=== PATIENT | male | born 1955 | race Caucasian/White ===

== ENCOUNTER 2019-06-07 05:11 | Inpatient (IN) | payer BC ==
--- OUTSIDE RECORDS SUMMARY | 2019-06-07 05:14 | XMS REPORT | Clinical Summary ---
:1955 Author Organization [facility] Address [address] [place] [address] Care Team Providers Name Role Phone Frederic Mosquera MD Primary Care Provider Allergies Active Allergy Reactions Severity Noted Date Comments Penicillins Other (See Comments) 01/03/2018 As a child Medications Medication Sig Dispensed Refills Start Date End Date Status metFORMIN (GLUCOPHAGE) Take 1,000 mg by 0 Active 1000 MG tablet mouth 2 (two) times daily with breakfast and dinner. SITagliptin (JANUVIA) Take 50 mg by 0 Active 50 MG tablet mouth daily. lisinopril Take 5 mg by 0 Active (PRINIVIL,ZESTRIL) 5 MG mouth daily. tablet lovastatin (MEVACOR) 40 Take 40 mg by 0 Active MG tablet mouth nightly. magnesium oxide Take 400 mg by 0 Active (MAG-OX) 400 mg tablet mouth daily. cinnamon bark 500 mg Take 500 mg by 0 Active capsule mouth daily. cholecalciferol Take 1,000 Units 0 Active (VITAMIN D3) 1,000 unit by mouth daily. tablet Active Problems Not on file Social History Tobacco Use Types Packs/Day Years Used Date Former Smoker Smokeless Tobacco: Never Used Alcohol Use Drinks/Week oz/Week Comments No Sex Assigned at Date Recorded Not on file Job Start Date Occupation Industry Not on file Not on file Not on file Travel History Travel Start Travel End No recent travel history available. Last Filed Vital Signs Not on file Plan of Treatment Not on file Results Not on fileafter 06/06/2018 Insurance Payer Benefit Plan / Subscriber ID Type Phone Address Group BLUE [employer]OSS/[employer]UE [employer] OS xxxxxxxxxxxxxxx PPO [phone] [address] SHIELD POS/PPO/[place] [address]
--- OUTSIDE RECORDS SUMMARY | 2019-06-07 05:14 | XMS REPORT ---
:1955 Author [facility] Address [address] [place] [address] Care Team Providers Name Role Phone MARLENI BARON Unavailable Unavailable Problems This patient has no known problems. Allergies, Adverse Reactions, Alerts This patient has no known allergies or adverse reactions. Medications This patient has no known medications. Results Test Description Test Time Test Comments Text Results Atomic Results Result Comments TISSUE EXAM 2018-01-12 19:30:00 Surgical Pathology Report Case: [id number] Authorizing Provider: Marleni Baron MD Collected: 01/10/2018 1538 Ordering Location: [facility] Endoscopy Received: 01/11/2018 0839 Services Pathologist: Aron Treviño MD Specimens: A) - Polyp, Colon - Right/Ascending, hot snare B) - Polyp, Colon - Rectum, POLYPS X2, TAKEN BY EMR/HOT SNARE A. COLON, RIGHT/ASCENDING, POLYPECTOMY- NONDYSPLASTIC COLON MUCOSA WITH NO SIGNIFICANT DIAGNOSTIC ALTERATIONSB. RECTUM, POLYPECTOMY- SESSILE SERRATED POLYP- HYPERPLASTIC POLYP- SEPARATE FRAGMENT OF RECTAL MUCOSA WITH NO SIGNIFICANT DIAGNOSTIC ALTERATIONS Signing Pathologist Direct Phone Line: [phone] signed by Aron Treviño MD on 01/12/2018 at 7:30 [id number] colonic polypA. Right/ascending colon colon polyp. B. Rectum polypSpecimen A: Received in formalin labeled "polyp, colon right/ascending" is a 0.7 x 0.5 x 0.2 cm, pink-ervin, irregular fragment of soft tissue. The specimen is bisected and entirely submitted in cassette A1.Specimen B: Received in formalin labeled "polyp, colon rectum" are three irregular, pink-ervin, polypoid fragments of soft tissue measuring 1.5 x 1.2 x 0.3 cm in aggregate. The largest fragment is bisected, and the specimen is entirely submitted in B1. DB/ew A. Microscopic examination is performed and the findings are incorporated in the diagnostic line. B. There is no cytologic atypia. POCT-GLUCOSE METER 2018-01-10 11:41:00 Test Item Value Reference Range Comments POC-GLUCOSE METER (ARELY) (test 177 mg/dL 70-110 TESTED AT [facility] [address] [facility] [id number]) [facility] [id number]
[2019-06-07] MEDS ORDERED: METOPROLOL TAR 25 MG TAB ONE (06:01)
--- NOTE | 2019-06-07 06:01 | EDPHYS ---
Physician Documentation [facility] Name: Bright Severino Age: 63 yrs Sex: Male : 1955 Arrival Date: 06/07/2019 Time: 05:25 Bed 5 Private MD: ED Physician Tony Moore HPI: 06/07 05:36 This 63 yrs old Male presents to ER via EMS with complaints of dizzy and timur weakness. 05:36 The patient has experienced near-syncope, almost passed out, felt generally weak. timur Onset: The symptoms/episode began/occurred just prior to arrival, this morning. Duration: This was a single episode, that lasted 3 minute(s). The patient presents with dizziness, feeling faint, generalized weakness, lightheadedness. Onset: The symptoms/episode began/occurred. Context: occurred at home, occurred while the patient was sitting. Modifying factors: The symptoms are alleviated by nothing, the symptoms are aggravated by nothing. Associated signs and symptoms: Pertinent positives: nausea, shortness of breath, vomiting. Historical: - Allergies: 05:38 PENICILLINS; fc - Home Meds: 05:38 metformin 1,000 mg oral tab 1 tab 2 times per day [Active]; Januvia 50 mg oral tab 1 fc tabs once daily [Active]; lovastatin 40 mg Oral tab 1 tab once daily [Active]; - PMHx: 05:38 Diabetes - NIDDM; High Cholesterol; fc - PSHx: 05:38 None; fc - Immunization history:: Last tetanus immunization: unknown. - Social history:: Smoking status: Patient/guardian denies using tobacco, Patient/guardian denies using alcohol, street drugs. - Ebola Screening: : Patient negative for fever greater than or equal to 101.5 degrees Fahrenheit, and additional compatible Ebola Virus Disease symptoms Patient denies exposure to infectious person Patient denies travel to an Ebola-affected area in the 21 days before illness onset. - Family history:: not pertinent. ROS: 05:36 Constitutional: Negative for fever, chills, and weight loss, Eyes: Negative for injury, timur pain, redness, and discharge, ENT: Negative for injury, pain, and discharge, Neck: Negative for injury, pain, and swelling, Back: Negative for injury and pain, : Negative for injury, bleeding, discharge, and swelling, MS/Extremity: Negative for injury and deformity, Skin: Negative for injury, rash, and discoloration, Psych: Negative for depression, anxiety, suicide ideation, homicidal ideation, and hallucinations, Allergy/Immunology: Negative for hives, rash, and allergies, Endocrine: Negative for neck swelling, polydipsia, polyuria, polyphagia, and marked weight changes, Hematologic/Lymphatic: Negative for swollen nodes, abnormal bleeding, and unusual bruising. 05:36 Cardiovascular: Positive for palpitations. 05:36 Respiratory: Positive for cough, shortness of breath. 05:36 Neuro: Positive for dizziness, near syncope. Exam: 05:36 Constitutional: This is a well developed, well nourished patient who is awake, alert, timur and in no acute distress. Head/Face: Normocephalic, atraumatic. Eyes: Pupils equal round and reactive to light, extra-ocular motions intact. Lids and lashes normal. Conjunctiva and sclera are non-icteric and not injected. Cornea within normal limits. Periorbital areas with no swelling, redness, or edema. ENT: Nares patent. No nasal discharge, no septal abnormalities noted. Tympanic membranes are normal and external auditory canals are clear. Oropharynx with no redness, swelling, or masses, exudates, or evidence of obstruction, uvula midline. Mucous membranes moist. Neck: Trachea midline, no thyromegaly or masses palpated, and no cervical lymphadenopathy. Supple, full range of motion without nuchal rigidity, or vertebral point tenderness. No Meningismus. Chest/axilla: Normal chest wall appearance and motion. Nontender with no deformity. No lesions are appreciated. Abdomen/GI: Soft, non-tender, with normal bowel sounds. No distension or tympany. No guarding or rebound. No evidence of tenderness throughout. Back: No spinal tenderness. No costovertebral tenderness. Full range of motion. Male : Normal genitalia with no discharge or lesions. Skin: Warm, dry with normal turgor. Normal color with no rashes, no lesions, and no evidence of cellulitis. MS/ Extremity: Pulses equal, no cyanosis. Neurovascular intact. Full, normal range of motion. Neuro: Awake and alert, GCS 15, oriented to person, place, time, and situation. Cranial nerves II-XII grossly intact. Motor strength 5/5 in all extremities. Sensory grossly intact. Cerebellar exam normal. Normal gait. Psych: Awake, alert, with orientation to person, place and time. Behavior, mood, and affect are within normal limits. 05:36 Cardiovascular: Rate: tachycardic, Rhythm: regular, Pulses: Pulses are 4+ in bilateral radial, brachial, femoral, popliteal, posterior tibial and and dorsalis pedis arteries.. Heart sounds: normal, Edema: is not appreciated, JVD: is not appreciated. 05:41 Musculoskeletal/extremity: DVT Exam: No signs of deep vein thrombosis. no pain, no timur swelling, no tenderness, negative Homans' sign noted on exam, no appreciated bluish discoloration, no erythema, no increased warmth. Vital Signs: 05:10 BP 157 / 82; Pulse 116; Resp 16; Temp 98.4(O); Pulse Ox 93% on R/A; Weight 102.06 kg fc (R); Height 5 ft. 9 in. (175.26 cm) (R); Pain 0/10; 06:30 BP 120 / 64; Pulse 75; Resp 14 S; Pulse Ox 95% on R/A; bb 07:52 BP 119 / 82; Pulse 69; Resp 16; Pulse Ox 99% ; sv 08:41 BP 110 / 72; Pulse 63; Resp 17; Pulse Ox 100% on R/A; tw2 09:45 BP 112 / 71; Pulse 60; Resp 17; Pulse Ox 99% on R/A; Pain 0/10; tw2 05:10 Body Mass Index 33.23 (102.06 kg, 175.26 cm) MDM: 05:27 Patient medically screened. [facility] 05:40 Data reviewed: vital signs, nurses notes, lab test result(s), EKG, radiologic studies, [facility] plain films. 06/07 05:35 Order name: Basic Metabolic Panel [facility] 06/07 05:35 Order name: CBC with Diff [facility] 06/07 05:35 Order name: LFT's [facility] 06/07 05:35 Order name: Magnesium [facility] 06/07 05:35 Order name: NT PRO-BNP [facility] 06/07 05:35 Order name: PT-INR; Complete Time: 06:19 [facility] 06/07 05:35 Order name: Troponin (emerg Dept Use Only); Complete Time: 06:52 [facility] 06/07 05:35 Order name: TSH; Complete Time: 06:52 [facility] 06/07 05:35 Order name: Lipase; Complete Time: 06:52 [facility] 06/07 05:35 Order name: Urine Culture [facility] 06/07 05:35 Order name: D-Dimer; Complete Time: 06:19 [facility] 06/07 05:37 Order name: Basic Metabolic Panel; Complete Time: 06:52 [facility] 06/07 05:37 Order name: CBC with Automated Diff; Complete Time: 06:19 [facility] 06/07 05:37 Order name: Liver (Hepatic) Function; Complete Time: 06:52 [facility] 06/07 05:35 Order name: XRAY Chest (1 view) [facility] 06/07 05:35 Order name: CT Head Brain wo Cont; Complete Time: 07:57 [facility] 06/07 05:37 Order name: Magnesium; Complete Time: 06:52 [facility] 06/07 05:37 Order name: NT PRO-BNP; Complete Time: 06:52 [facility] 06/07 06:18 Order name: US Extremity Venous W Compression Viet [facility] 06/07 06:18 Order name: CT Chest For PE Angio [facility] 06/07 06:54 Order name: Echo w/ Doppler [facility] 06/07 07:55 Order name: CT; Complete Time: 07:57 [facility] 06/07 08:03 Order name: US [facility] 06/07 09:20 Order name: Urine Dipstick--Ancillary (enter results) 06/07 10:15 Order name: Urine Dipstick-Ancillary [facility] 06/07 05:35 Order name: EKG; Complete Time: 05:38 [facility] 06/07 05:35 Order name: Cardiac monitoring; Complete Time: 05:39 [facility] 06/07 05:35 Order name: EKG - Nurse/Tech; Complete Time: 05:39 [facility] 06/07 05:35 Order name: IV Saline Lock; Complete Time: 05:39 [facility] 06/07 05:35 Order name: Labs collected and sent; Complete Time: 05:40 [facility] 06/07 05:35 Order name: O2 Per Protocol; Complete Time: 05:40 [facility] 06/07 05:35 Order name: O2 Sat Monitoring; Complete Time: 05:40 [facility] 06/07 05:35 Order name: Urine Dipstick-Ancillary (obtain specimen); Complete Time: 10:15 [facility] Administered Medications: Discontinued: NS 0.9% 1000 ml IV at 1 bolus Per protocol; 1000 mL bolus 05:49 Drug: NS 0.9% 1000 ml Route: IV; Rate: 1 bolus; Site: right antecubital; bb 06:55 Follow up: IV Status: Order to discontinue infusion tw2 05:53 Drug: Lopressor 25 mg Route: PO; bb 07:06 Follow up: Response: No adverse reaction bb 06:59 CANCELLED (Duplicate Order): Zofran 4 mg IVP once; over 2 minutes timur 07:05 Drug: Phenergan 12.5 mg Route: IVP; Site: right antecubital; bb 07:48 Follow up: Response: No adverse reaction; Nausea is decreased sv 07:06 Drug: Aspirin 162 mg Route: PO; bb 07:48 Follow up: Response: No adverse reaction sv 07:06 Drug: Lovenox 1 mg/kg Route: Sub-Q; Site: abdomen; bb 07:48 Follow up: Response: No adverse reaction sv 08:04 Drug: Lasix 20 mg Route: IVP; Site: right antecubital; tw2 08:54 Follow up: Response: No adverse reaction sv Point of Care Testing: Blood Glucose: 05:28 Blood Glucose: 217 mg/dL; fc Ranges: Critical Glucose Levels:Adult <50 mg/dl or >400 mg/dl <40 mg/dl or >180 mg/dl Disposition: 06/07/19 05:59 Hospitalization ordered by Brian Nevarez for Inpatient Admission. Preliminary diagnosis are Atrial fibrillation and flutter - with rvr, Syncope and collapse - near, Type 2 diabetes mellitus, Cardiomegaly, Unspecified combined systolic (congestive) and diastolic (congestive) heart failure. - Bed requested for Telemetry/MedSurg (Inpatient). - Status is Inpatient Admission. sv - Condition is Fair. - Problem is new. - Symptoms have improved. UTI on Admission? No Signatures: Dispatcher [employer] Maribel Samaniego RN RN Tony Laboy MD MD cha Chretien, Felicia RN KIMMIE Fatemeh De La Paz RN RN bb Wise, Tara, RN RN tw2 Traci Alonso Corrections: (The following items were deleted from the chart) 06:56 05:59 Hospitalization Ordered by Brian Nevarez DO for Inpatient Admission. Preliminary timur diagnosis is Atrial fibrillation and flutter - with rvr; Syncope and collapse - near; Type 2 diabetes mellitus. Bed requested for Telemetry/MedSurg (Inpatient). Status is Inpatient Admission. Condition is Fair. Problem is new. Symptoms have improved. UTI on Admission? No. timur 06:59 06:59 Zofran 4 mg IVP once; over 2 minutes ordered. [facility] 07:58 06:56 06/07/2019 05:59 Hospitalization Ordered by Brian Nevarez DO for Inpatient timur Admission. Preliminary diagnosis is Atrial fibrillation and flutter - with rvr; Syncope and collapse - near; Type 2 diabetes mellitus; Cardiomegaly. Bed requested for Telemetry/MedSurg (Inpatient). Status is Inpatient Admission. Condition is Fair. Problem is new. Symptoms have improved. UTI on Admission? No. timur 09:51 07:58 06/07/2019 05:59 Hospitalization Ordered by Brian Nevarez DO for Inpatient eb Admission. Preliminary diagnosis is Atrial fibrillation and flutter - with rvr; Syncope and collapse - near; Type 2 diabetes mellitus; Cardiomegaly; Unspecified combined systolic (congestive) and diastolic (congestive) heart failure. Bed requested for Telemetry/MedSurg (Inpatient). Status is Inpatient Admission. Condition is Fair. Problem is new. Symptoms have improved. UTI on Admission? No. timur 12:50 09:51 06/07/2019 05:59 Hospitalization Ordered by Brian Nevarez DO for Inpatient eb Admission. Preliminary diagnosis is Atrial fibrillation and flutter - with rvr; Syncope and collapse - near; Type 2 diabetes mellitus; Cardiomegaly; Unspecified combined systolic (congestive) and diastolic (congestive) heart failure. Bed requested for [facility] ER HOLD. Status is Inpatient Admission. Condition is Fair. Problem is new. Symptoms have improved. UTI on Admission? No. eb 13:37 12:50 06/07/2019 05:59 Hospitalization Ordered by Brian Nevarez DO for Inpatient sv Admission. Preliminary diagnosis is Atrial fibrillation and flutter - with rvr; Syncope and collapse - near; Type 2 diabetes mellitus; Cardiomegaly; Unspecified combined systolic (congestive) and diastolic (congestive) heart failure. Bed requested for Telemetry/MedSurg (Inpatient). Status is Inpatient Admission. Condition is Fair. Problem is new. Symptoms have improved. UTI on Admission? No. eb
--- NOTE | 2019-06-07 06:01 | ER ---
Nurse's Notes [facility] Name: Bright Severino Age: 63 yrs Sex: Male : 1955 Arrival Date: 06/07/2019 Time: 05:25 Bed 5 Private MD: Diagnosis: Atrial fibrillation and flutter-with rvr;Syncope and collapse-near;Type 2 diabetes mellitus;Cardiomegaly;Unspecified combined systolic (congestive) and diastolic (congestive) heart failure Presentation: 06/07 05:10 Presenting complaint: Patient states: that he woke up and had his morning coffee like normal. He then suddenly became dizzy and just didn't feel well. Also having nausea and vomiting. Does state that for the past month he has been having issues with shortness of breath and no energy. Has appt next week to see Dr Sanchez. Transition of care: patient was not received from another setting of care. Onset of symptoms was June 07, 2019 at 04:00. Risk Assessment: Do you want to hurt yourself or someone else? Patient reports no desire to harm self or others. Initial Sepsis Screen: Does the patient meet any 2 criteria? HR > 90 bpm. Yes Does the patient have a suspected source of infection? No. Patient's initial sepsis screen is negative. Care prior to arrival: IV initiated. 18 GA, in the right antecubital area. 05:10 Method Of Arrival: EMS: [facility] 05:10 Acuity: FARHAD 3 fc Historical: - Allergies: 05:38 PENICILLINS; fc - Home Meds: 05:38 metformin 1,000 mg oral tab 1 tab 2 times per day [Active]; Januvia 50 mg oral tab 1 fc tabs once daily [Active]; lovastatin 40 mg Oral tab 1 tab once daily [Active]; - PMHx: 05:38 Diabetes - NIDDM; High Cholesterol; fc - PSHx: 05:38 None; fc - Immunization history:: Last tetanus immunization: unknown. - Social history:: Smoking status: Patient/guardian denies using tobacco, Patient/guardian denies using alcohol, street drugs. - Ebola Screening: : Patient negative for fever greater than or equal to 101.5 degrees Fahrenheit, and additional compatible Ebola Virus Disease symptoms Patient denies exposure to infectious person Patient denies travel to an Ebola-affected area in the 21 days before illness onset. - Family history:: not pertinent. Screenin:10 Abuse screen: Denies threats or abuse. Nutritional screening: No deficits noted. fc Tuberculosis screening: No symptoms or risk factors identified. Fall Risk None identified. Assessment: 05:33 General: Appears in no apparent distress. Behavior is calm, cooperative. Pain: Denies bb pain. Neuro: Level of Consciousness is awake, alert, obeys commands, Oriented to person, place, time, situation. Cardiovascular: Heart tones S1 S2 present Capillary refill < 3 seconds Patient's skin is warm and dry. Pulses are all present. Edema is absent. Respiratory: Respiratory effort is even, unlabored, Respiratory pattern is regular, symmetrical, Breath sounds are clear bilaterally. GI: Abdomen is non-distended, Bowel sounds present X 4 quads. Abd is soft and non tender X 4 quads. Derm: Skin is pink, warm \T\ dry. Musculoskeletal: Circulation, motion, and sensation intact. 06:04 Reassessment: pt to CT scan via stretcher with glass installer technician. bb 06:28 Reassessment: Patient is alert, oriented x 3, equal unlabored respirations, skin bb warm/dry/pink. IV site intact, patent, with fluids infusing, awaiting diagnostic results, family at bedside. Pt states dizziness only lasted about 5 minutes. 06:54 Reassessment: pt returned from CT via stretcher with glass installer technician. Pt is A\T\O x 4, resp bb unlabored, US tech now at bedside. 06:56 Reassessment: pt is vomiting Dr Moore notified. bb 07:42 Reassessment: Patient appears in no apparent distress at this time. Patient and/or tw2 family updated on plan of care and expected duration. Pain level reassessed. Patient is alert, oriented x 3, equal unlabored respirations, skin warm/dry/pink. Patient states feeling better. 08:42 Reassessment: Patient appears in no apparent distress at this time. Patient and/or tw2 family updated on plan of care and expected duration. Pain level reassessed. Patient is alert, oriented x 3, equal unlabored respirations, skin warm/dry/pink. 09:45 Reassessment: Patient appears in no apparent distress at this time. Patient and/or tw2 family updated on plan of care and expected duration. Pain level reassessed. Patient is alert, oriented x 3, equal unlabored respirations, skin warm/dry/pink. 10:14 Reassessment: SEE [facility] CHARTING PT IS ER HOLD AT THIS TIME. tw2 Vital Signs: 05:10 BP 157 / 82; Pulse 116; Resp 16; Temp 98.4(O); Pulse Ox 93% on R/A; Weight 102.06 kg fc (R); Height 5 ft. 9 in. (175.26 cm) (R); Pain 0/10; 06:30 BP 120 / 64; Pulse 75; Resp 14 S; Pulse Ox 95% on R/A; bb 07:52 BP 119 / 82; Pulse 69; Resp 16; Pulse Ox 99% ; sv 08:41 BP 110 / 72; Pulse 63; Resp 17; Pulse Ox 100% on R/A; tw2 09:45 BP 112 / 71; Pulse 60; Resp 17; Pulse Ox 99% on R/A; Pain 0/10; tw2 05:10 Body Mass Index 33.23 (102.06 kg, 175.26 cm) ED Course: 05:10 Arm band placed on Patient placed in an exam room, on a stretcher. 05:10 Patient has correct armband on for positive identification. Bed in low position. Call fc light in reach. Side rails up X2. dobby loom chain pegger on. Pulse ox on. NIBP on. 05:10 No provider procedures requiring assistance completed. Maintain EMS IV. Dressing fc intact. Good blood return noted. Site clean \T\ dry. Gauge \T\ site: 18 gauge to right a/c. 05:18 EKG done, by ED staff, reviewed by Tony Moore MD. fc 05:25 Patient arrived in ED. timur 05:25 Initial lab(s) drawn, by ga, sent to lab. fc 05:27 Tony Moore MD is Attending Physician. timur 05:31 Triage completed. fc 05:58 Brian Nevarez DO is Hospitalizing Provider. timur 06:11 CT completed. Patient tolerated procedure well. Patient moved to CT via stretcher. eh Patient moved back from CT. 06:13 XRAY Chest (1 view) In Process Unspecified. EDMS 06:20 CT Head Brain wo Cont In Process Unspecified. EDMS 07:50 Basic Metabolic Panel Sent. sv 07:50 CBC with Diff Sent. sv 07:50 LFT's Sent. sv 07:50 Magnesium Sent. sv 07:50 NT PRO-BNP Sent. sv 07:52 Awaiting radiology results. sv 07:58 Madiha Drummond, RN is Primary Nurse. tw2 08:15 Echocardiogram with doppler done by fish technologist. tc 08:56 CT Chest For PE Angio Sent. sv 08:56 Echo w/ Doppler Sent. sv 08:56 US Extremity Venous W Compression Viet Sent. sv 10:15 Patient admitted, IV remains in place. tw2 Administered Medications: Discontinued: NS 0.9% 1000 ml IV at 1 bolus Per protocol; 1000 mL bolus 05:49 Drug: NS 0.9% 1000 ml Route: IV; Rate: 1 bolus; Site: right antecubital; bb 06:55 Follow up: IV Status: Order to discontinue infusion tw2 05:53 Drug: Lopressor 25 mg Route: PO; bb 07:06 Follow up: Response: No adverse reaction bb 06:59 CANCELLED (Duplicate Order): Zofran 4 mg IVP once; over 2 minutes timur 07:05 Drug: Phenergan 12.5 mg Route: IVP; Site: right antecubital; bb 07:48 Follow up: Response: No adverse reaction; Nausea is decreased sv 07:06 Drug: Aspirin 162 mg Route: PO; bb 07:48 Follow up: Response: No adverse reaction sv 07:06 Drug: Lovenox 1 mg/kg Route: Sub-Q; Site: abdomen; bb 07:48 Follow up: Response: No adverse reaction sv 08:04 Drug: Lasix 20 mg Route: IVP; Site: right antecubital; tw2 08:54 Follow up: Response: No adverse reaction sv Point of Care Testing: Blood Glucose: 05:28 Blood Glucose: 217 mg/dL; fc Ranges: Outcome: 05:59 Decision to Hospitalize by Provider. timur 10:14 Admitted to ER Hold. Please see [facility] for further documentation. tw2 10:14 Condition: stable 10:14 Instructed on the need for admit. 13:37 Patient left the ED. sv Signatures: Dispatcher [employer] Maribel Samaniego RN RN sv Tony Moore MD MD cha Hagler, Ervin Gerri Mcgowan RN RN fc Ballard, Brenda, RN RN bb Cecilia White, sound technician supervisor EKG Ttc Madiha Drummond, KIMMIE RN tw2
[2019-06-07] MEDS ORDERED: NA CHLORIDE 0.9% 1,000 ML ONE (06:02)
[2019-06-07 06:09] LABS: Absolute Lymphocytes (CBC) 1.4 K/uL (0.7-4.9); Basophils % 0.6 % (0-1.3); Lymphocytes % 13.6 % (15.3-44.8); MPV 10.4 fL (7.6-11.3); RBC Red Blood Cell Count 4.13 M/uL (4.33-5.43)
[2019-06-07 06:16] LABS: Protime INR 1.07
[2019-06-07 06:29] LABS: ALT/SGPT 27 U/L (12-78); AST/SGOT 14 U/L (15-37); Albumin 3.8 g/dL (3.4-5.0); Alkaline Phosphatase 75 U/L (45-117); BUN Blood Urea Nitrogen 17 mg/dL (7-18); Bicarbonate 27 mmol/L (21-32); Bilirubin Direct 0.2 mg/dL (0-0.2); Bilirubin Total 0.6 mg/dL (0.2-1.0); Glucose Level 187 mg/dL (74-106); Magnesium 2.1 mg/dL (1.8-2.4); NT PRO-BNP 3183 pg/mL (<125); Sodium Level 143 mmol/L (136-145); Troponin (Emerg Dept Use Only) < 0.02 ng/mL (0.0-0.045)
--- NOTE | 2019-06-07 06:30 | P.HP ---
Certification for Inpatient Patient admitted to: Observation With expected LOS: <2 Midnights Patient will require the following post-hospital care: None Practitioner: I am a practitioner with admitting privileges, knowledge of patient current condition, hospital course, and medical plan of care. Services: Services provided to patient in accordance with Admission requirements found in Title 42 Section 412.3 of the Code of Federal Regulations Patient History Date of Service: 06/07/19 Primary Care Provider: Dr Mosquera Reason for admission: Shortness of breath, dizziness History of Present Illness: 63-year-old male presented to the emergency room with shortness of breath and dizziness. Patient with history of diabetes mellitus type 2, hyperlipidemia and tobacco abuse. Patient has been having shortness of breath over the past month. He recently saw pulmonology to evaluate for COPD. He is to have a pulmonary function test here soon. Today he was had drinking coffee. He became dizzy and more short of breath. He denied any significant chest pain. He came to the ER for further evaluation. In the ER he was found to be in atrial fibrillation with rate mildly elevated. Patient was given IV fluids in the emergency room. He converted back to normal sinus rhythm. CBC, BMP reviewed. CT head pending at this time. Patient was admitted for observation to further evaluate. Patient started on metoprolol. Patient stable at this time. Patient reported that he was to see Cardiology but his 1st appointment was in June. Home medications list reviewed: Yes - Past Medical/Surgical History Diabetic: Yes -: Diabetes mellitus type 2, non insulin dependent -: Hyperlipidemia -: COPD -: Former tobacco use Past Surgical History: Patient denies surgical history Psychosocial/ Personal History: Patient is - Family History Family History: Reviewed- Non-Contributory - Social History Smoking Status: Former smoker Alcohol use: No CD- Drugs: No Caffeine use: Yes Place of Residence: Home Review of Systems General: As per HPI Eyes: Unremarkable Respiratory: Shortness of Breath, As per HPI Cardiovascular: Light Headedness, As per HPI Gastrointestinal: Unremarkable Genitourinary: Unremarkable Musculoskeletal: Unremarkable Integumentary: Unremarkable Neurological: Unremarkable Lymphatics: Unremarkable Physical Examination - Physical Exam General: Alert, In no apparent distress, Oriented x3, Cooperative HEENT: Atraumatic, Normocephalic, PERRLA, Mucous membr. moist/pink Neck: Supple, No Thyromegaly Respiratory: Clear to auscultation bilaterally, Normal air movement Cardiovascular: Normal pulses, Regular rate/rhythm Gastrointestinal: Normal bowel sounds, Soft and benign, Non-distended, No tenderness, No masses, No rebound, No guarding Musculoskeletal: No erythema, No tenderness, No warmth Integumentary: No tenderness/swelling, No erythema, No warmth, No cyanosis Neurological: Normal speech, Normal strength at 5/5 x4 extr, Normal tone, Normal affect - Studies Laboratory Data (last 24 hrs) 06/07/19 05:25: Lipase 118 06/07/19 05:25: PT 12.6 H, INR 1.07 06/07/19 05:25: WBC 10.4, Hgb 12.9 L, Hct 39.0 L, Plt Count 228 Assessment and Plan - Plan Impression: New onset atrial fibrillation now in normal sinus rhythm Diabetes mellitus type 2, tkh-szmzidl-sncaoghak Hypertension Hyperlipidemia COPD Former tobacco use Plan: New onset atrial fibrillation now in normal sinus rhythm: Patient will be admitted for further evaluation. Patient converted to normal sinus rhythm in the emergency room. Patient started on metoprolol. Will start Lovenox at 1 milligram/kilogram subcu twice daily. Echocardiogram ordered. Will consult cardiology to further evaluate and assess. Patient will likely continue with metoprolol and require chronic anti coagulation therapy. Await further recommendations from cardiology. Anticipate discharge in the next 24 to 48 hr pending cardiology evaluation and recommendation. Diabetes mellitus type 2, [id number]: Will monitor Accu-Cheks. Will provide sliding scale. Patient currently takes metformin and Januvia as an outpatient. Hypertension: Metoprolol will be started. Will monitor and adjust appropriately. Hyperlipidemia: Continue with Lipitor. Check fasting lipid panel. COPD: This is being worked up as an outpatient. Patient to have pulmonary function tests. Will provide Atrovent. Will discontinue albuterol at this time. Former tobacco use: Continue with tobacco cessation education Discharge Plan: Home Plan to discharge in: 24 Hours - Advance Directives Does patient have a Living Will: No Does patient have a Durable POA for Healthcare: No - Code Status/Comfort Care Code Status Assessed: Yes (Patient is full code) Time Spent Managing Pts Care (In Minutes): 55
[2019-06-07] MEDS ORDERED: PROMETHAZINE 25 MG/ML VIAL ONE (07:16)
[2019-06-07] MEDS ORDERED: ENOXAPARIN 100 MG/ML SYR SQ ONE (07:17)
[2019-06-07] MEDS ORDERED: ASPIRIN EC 81 MG TAB PO ONE (07:17)
--- NOTE | 2019-06-07 07:48 | RAD REPORT ---
EXAM DESCRIPTION: CT - Head Brain Wo Cont - 06/07/2019 6:18 am CLINICAL HISTORY: Weakness, dizziness, syncope COMPARISON: None. TECHNIQUE: Axial 5 mm thick images of the head were obtained without IV contrast. All CT scans are performed using dose optimization technique as appropriate and may include automated exposure control or mA/KV adjustment according to patient size. FINDINGS: No intracranial hemorrhage, mass, edema or shift of mid-line structures. No acute infarcti on changes seen. No abnormal extra-axial fluid collections. Ventricles are normal. Mastoid air cells and visualized portions of the paranasal sinuses are clear. No acute bony findings. IMPRESSION: Negative non-contrast CT head examination.
--- NOTE | 2019-06-07 07:54 | RAD REPORT ---
EXAM DESCRIPTION: CT - Chest For Pe Angio - 06/07/2019 6:58 am CLINICAL HISTORY: Weakness, shortness of breath COMPARISON: Portable chest same date TECHNIQUE: Dynamically enhanced 3 mm thick images of the chest were obtained during administration o f approximately 150mL Isovue 370 IV contrast. Coronal and oblique MIP reconstruction images were gene rated and reviewed. Exam utilizes a protocol to evaluate the pulmonary arterial tree. All CT scans are performed using dose optimization technique as appropriate and may include automated exposure control or mA/KV adjustment according to patient size. FINDINGS: No pulmonary emboli are identified. Aorta assessment is limited on a PE protocol study. No aortic aneurysm. There are aortic calcificatio ns present but no displaced calcification or other finding suspicious for an acute aortic process. No pericardial thickening or effusion. Heart size is upper normal. Small to moderate bilateral layering pleural effusions are present posteriorly. No suspicion for locu lation. No focal consolidations seen. Partial atelectasis seen in each lower lobe. Overall interstiti al markings are prominent and the patient could have a mild interstitial edema or infiltrate pattern. Early failure would be a consideration. No pneumothorax. No pleural based mass. A few small nonspecific or reactive type mediastinal and hilar lymph nodes are present. No suspicious mediastinal process identifiable. No chest wall masses or abnormal axillary lymphadenopathy. Prominent thoracic spine degenerative changes. IMPRESSION: No pulmonary emboli identified. Small to moderate sized layering posterior pleural effusions. There is minimal partial atelectasis of each lower lobe. Prominent interstitial pattern suggesting interstitial edema or infiltrate. Patient may have mild andrew lure.
--- NOTE | 2019-06-07 08:01 | RAD REPORT ---
EXAM DESCRIPTION: US - Extrem Venous W Compress Viet - 06/07/2019 7:17 am CLINICAL HISTORY: Bilateral leg pain COMPARISON: None. TECHNIQUE: Real-time sonographic evaluation of the bilateral lower extremity common femoral, superfi cial femoral, popliteal and posterior tibial veins was performed. FINDINGS: Normal compressibility, flow augmentation, phasic flow and spontaneous flow are identified in the left and right lower extremity common femoral, superficial femoral, popliteal and posterior t ibial veins. No intraluminal filling defects seen. IMPRESSION: No DVT in either lower extremity.
[2019-06-07] MEDS ORDERED: FUROSEMIDE 20 MG/ 2ML VIAL ONE (08:17)
--- NOTE | 2019-06-07 09:10 | RAD REPORT ---
EXAM DESCRIPTION: RAD - Chest Single View - 06/07/2019 6:13 am CLINICAL HISTORY: Dizziness, syncope, shortness of breath COMPARISON: None. TECHNIQUE: AP portable chest image was obtained 0611 hours . FINDINGS: No focal mass or consolidation. Interstitial markings are prominent. Mild cardiomegaly is present with vascular engorgement also mild in degree. Trachea is midline. No measurable pleural effu watson and no pneumothorax. No acute bony abnormality seen. No acute aortic findings suspected. IMPRESSION: No focal mass or consolidation. Patient shows a mild failure/ volume overload pattern.
[2019-06-07 10:13] LABS: Urine Blood NEGATIVE (NEG); Urine Glucose NEGATIVE (NEG); Urine Protein NEGATIVE (NEG); Urine pH 5.5 (5.0-7.0)
[2019-06-07] MEDS ORDERED: ACETAMINOPHEN 500 MG TAB PO PRN (10:43)
[2019-06-07] MEDS ORDERED: ONDANSETRON 4 MG/2 ML VIAL IV PRN (10:43)
[2019-06-07] MEDS ORDERED: IPRATROPIUM BROM 0.5MG/2.5ML NEB PRN (10:43)
--- NOTE | 2019-06-07 11:21 | EKG ---
Test Date: 2019-06-07 Test Time: 05:49:51 Vegetable Harvest Machine Operator: MARTHA MEASUREMENT RESULTS: Intervals: Rate: 74 WY: 196 QRSD: 110 QT: 416 QTc: 461 [place]: P: 59 W[place]: 196 QRS: 52 T: 84 INTERPRETIVE STATEMENTS: Normal sinus rhythm Low voltage QRS Incomplete left bundle branch block T wave abnormality, consider anterior ischemia Abnormal ECG Compared to ECG 06/07/2019 05:18:31 Left bundle-branch block now present T-wave abnormality now present Possible ischemia now present Sinus tachycardia no longer present Fusion complex(es) no longer present Ventricular premature complex(es) no longer present First degree AV block no longer present Myocardial infarct finding no longer present Electronically Signed On 06-07-19 11:20:57 CDT by Trung Oh
--- NOTE | 2019-06-07 11:21 | EKG ---
Test Date: 2019-06-07 Test Time: 05:18:31 Resident Director: MARTHA MEASUREMENT RESULTS: Intervals: Rate: 111 AK: 214 QRSD: 114 QT: 358 QTc: 486 [place]: P: 52 AK: 214 QRS: 58 T: 29 INTERPRETIVE STATEMENTS: Sinus tachycardia with 1st degree AV block with frequent premature ventricular complexes and fusion complexes Low voltage QRS Cannot rule out Anterior infarct, age undetermined Abnormal ECG No previous ECG available for comparison Electronically Signed On 06-07-19 11:20:59 CDT by Trung Oh
--- NOTE | 2019-06-07 12:04 | ECHO ---
HEIGHT: 5 ft 9 in WEIGHT: 125 lb 0 oz DATE OF STUDY: 06/07/[address]: Tony Moore MD 2-DIMENSIONAL: YES M.MODE: YES DOPPLER: YES COLOR FLOW: YES TDS: NO PORTABLE: YES DEFINITY: NO BUBBLE STUDY: NO DIAGNOSIS: CONGESTIVE HEART FAILURE/ ATRIAL FIBRILLATION CARDIAC HISTORY: CATHERIZATION: NO SURGERY: NO PROSTHETIC VALVE: NO PACEMAKER: NO MEASUREMENTS (cm) DIASTOLIC (NORMALS) SYSTOLIC (NORMALS) IVSd 0.9 (0.6-1.2) LA Diam 3.5 (1.9-4.0) LVEF 30% LVIDd 6.7 (3.5-5.7) LVIDs 5.7 (2.0-3.5) %FS 14% LVPWd 1.0 (0.6-1.2) Ao Diam 2.9 (2.0-3.7) 2 DIMENSIONAL ASSESSMENT: RIGHT ATRIUM: NORMAL LEFT ATRIUM: NORMAL RIGHT VENTRICLE: NORMAL LEFT VENTRICLE: DILATED TRICUSPID VALVE: NORMAL MITRAL VALVE: NORMAL PULMONIC VALVE: NORMAL AORTIC VALVE: STENOTIC PERICARDIAL EFFUSION: NONE AORTIC ROOT: NORMAL LEFT VENTRICULAR WALL MOTION: SEVERE GLOBAL HYPOKINESIS. DOPPLER/COLOR FLOW: MODERATE AORTIC STENOSIS AREA 1.3 CENTIMETERS SQUARED. PRESSURE GRADIENT 20mmHg. COMMENTS: SEVERE GLOBAL HYPOKINESIS. MODERATE AORTIC STENOSIS 1.3 CENTIMETERS SQAURED. LEFT VENTRICULAR DILATATION. NO EFFUSION. TECHNOLOGIST: FERNANDA ARIAS
[2019-06-07] MEDS: INSULIN -REGULAR HUMAN 50 UNIT/0.5 ML ML SQ SCH ×2 (12:44→21:00)
[2019-06-07] MEDS ORDERED: SITAGLIPTIN PHOSPHATE PO SCH (14:45)
--- NOTE | 2019-06-07 14:48 | CON ---
Date of Consultation: 06/07/2019 Reason For Consultation: Atrial fibrillation and congestive heart failure. History Of Present Illness: Mr. Severino is a 63-year-old male, has a history of diabetes and hyper lipidemia, came in with weakness and dizziness. He was found in the emergency room to have mild caity estive heart failure by chest x-ray. He was in atrial fibrillation that has resolved. He had a D-di leena of [address] angiogram, which was negative for pulmonary embolus. His BNP was 3183 and gluco se was 187. No chest pain reported. He has been having dyspnea on exertion, dizziness, and weakness . Denied PND, orthopnea, pedal edema, palpitations, or syncope. Allergies: HE IS ALLERGIC TO PENICILLIN. Past Medical History: Includes diabetes and cholesterol. Medications At Home: Include Januvia, lovastatin, and metformin. Physical Examination: Vital Signs: Stable, afebrile. HEENT: Negative. Neck: Supple with no bruits, lymphadenopathy, JVD, or thyromegaly. Chest: Revealed rales at both bases. Cardiac: Revealed a 2/6 systolic ejection murmur at the third right intercostal space, radiating to the carotid, S4 gallop. Abdomen: Benign. Extremities: Revealed trace edema. Diagnostic Data: he had a venous Doppler that was negative. Echocardiogram showed aortic stenosis that is 1.3 cm with an ejection fraction of 30% with severe global hypokinesis. Impression And Plan: 1.Acute onset of systolic congestive heart failure. 2.Moderate aortic stenosis. 3.New-onset atrial fibrillation that has resolved. 4.Diabetes. 5.Dyslipidemia. I think the patient needs to be diuresed first and foremost. We should add Lasix to his regimen. He is now on metoprolol and Lovenox. I would avoid SAM inhibitor with his aortic stenosis for now. Af ter he diuresis and improves from that standpoint, we should plan for a heart catheterization. I wou ld not anticoagulate him p.o. for now. I will continue his Lovenox. Depending on how he does, we will probably do the catheterization as an outpatient sometime early next week. His other p roblems seem to be stable at this point. NB/MODL Voice ID: [id number] Report ID: [id number]
[2019-06-07 15:10] LABS: CKMB Creatine Kinase MB 1.8 ng/mL (0.3-3.6); Troponin I 0.04 ng/mL (0.0-0.045)
[2019-06-07] MEDS: FUROSEMIDE 40 MG/4 ML VIAL IV SCH (16:25)
[2019-06-07 16:28] LABS: Urine Appearance CLEAR; Urine Bilirubin NEGATIVE (NEG); Urine Blood NEGATIVE (NEG); Urine Color YELLOW; Urine Glucose NEGATIVE (NEG); Urine Protein NEGATIVE (NEG); Urine Specific Gravity 1.025 (1.005-1.030); Urine Urobilinogen 0.2 mg/dL (0.2-1.0)
[2019-06-07 16:31] LABS: Urine Microscopic Reflex NO UMIC
--- NOTE | 2019-06-07 17:03 | PN ---
Date of Progress Note: 06/07/2019 Subjective: Patient seen and examined. Chart reviewed and case discussed with RN and Dr. Oh. Patient states his shortness of breath has improved. The dizziness is better as well. The patient is back in sinus rhythm. Medications: List reviewed. Physical Examination: Vital Signs: Pulse is 63, blood pressure 110/72, respirations 17, O2 of 100% on room air. General: Awake, alert, and oriented x3. Elderly male. CV: S1, S2. Regular rate and rhythm. The patient does have murmur systolic. Respiratory: Clear to auscultation bilaterally. No wheezing or stridor. Gastrointestinal: Abdomen is soft, nontender, nondistended. Positive bowel sounds. No guarding or rigidity. Extremities: No clubbing, cyanosis, or edema. No calf tenderness. Neuro: Cranial nerves 2 through 12 intact grossly. No focal neurological deficit. Speech is normal. Skin: No rashes. Normal skin turgor. Laboratory Data: WBC 10.4, H and H 12.9 and 39. Troponin less than 0.02. Magnesium 2.1. UA is negative. Echocardiogram shows EF of 30%. Severe global hypokinesis, moderate aortic stenosis 1.3 cm2. Left ventricular dilation, no effusion. Doppler venous study, no DVT in either lower extremity. CT angio chest shows no pulmonary emboli. The patient has varying posterior pleural effusions, partial atelectasis of each lower lobe, mild failure pattern. Head CT scan negative for any acute abnormalities. Assessment And Plan: A 63-year-old male with: 1. New onset atrial fibrillation with rapid ventricular response, now back in sinus rhythm, improved with metoprolol. Continue with Lovenox. Appreciate Dr. Oh's input. He recommends cardiac catheterization. The patient has severe global hypokinesis and aortic stenosis, depressed ejection fraction of 30 %. 2. Acute congestive heart failure, systolic dysfunction, new onset chest x- ray and CT angio show pleural effusions and heart failure pattern. We will start on diuretics and continue to monitor I's and O's. Start on free fluid restriction and sodium restriction. 3. Diabetes mellitus type 2 non-insulin dependent with hyperglycemia. We will continue with sliding scale insulin, monitor Accu-Cheks. 4. Mixed hyperlipidemia. We will continue statin. 5. Chronic obstructive pulmonary disease. Continue with breathing treatments as needed. 6. Essential hypertension. Continue on beta-kandy. 7. Pleural effusion bilateral. Appear small. No need for thoracentesis. Secondary to CHF. Continue diuresis. 7. Deep vein thrombosis prophylaxis. Patient is already on Lovenox. Plan: Patient will need an outpatient workup including pulmonary function testing and will need to follow closely with Cardiology for his new onset heart failure and atrial fibrillation. We will transition to oral anticoagulants upon discharge. /ANTONIETA Voice ID: [id number] Report ID: [id number] SURJIT
[2019-06-07] MEDS: METOPROLOL TAR 25 MG TAB PO SCH (17:19)
[2019-06-07 20:01] LABS: CKMB Creatine Kinase MB 1.9 ng/mL (0.3-3.6); Troponin I 0.04 ng/mL (0.0-0.045)
[2019-06-07] MEDS: ENOXAPARIN 60 MG/0.6 ML SQ SCH (21:00)
[2019-06-07] MEDS ORDERED: ATORVASTATIN 40 MG TAB PO SCH (21:00)
[2019-06-07] MEDS ORDERED: ALPRAZOLAM 0.25 MG TABLET PO PRN (21:40)
[2019-06-08] MEDS: METOPROLOL TAR 25 MG TAB PO SCH (06:23)
[2019-06-08 07:04] LABS: Absolute Lymphocytes (CBC) 1.8 K/uL (0.7-4.9); Basophils % 0.3 % (0-1.3); Hematocrit 39.5 % (39.6-49.0); Lymphocytes % 18.5 % (15.3-44.8); MPV 10.6 fL (7.6-11.3)
[2019-06-08 07:16] LABS: Magnesium 2.4 mg/dL (1.8-2.4); Potassium 4.1 mmol/L (3.5-5.1)
[2019-06-08] MEDS: INSULIN -REGULAR HUMAN 50 UNIT/0.5 ML ML SQ SCH (07:30)
[2019-06-08] MEDS ORDERED: ATORVASTATIN 20 MG TAB PO SCH (08:00)
[2019-06-08] MEDS: ENOXAPARIN 60 MG/0.6 ML SQ SCH (08:22)
[2019-06-08] MEDS: FUROSEMIDE 40 MG/4 ML VIAL IV SCH (08:23)
[2019-06-08] MEDS ORDERED: HOME MED 1 EA UNK (Lovastatin [Lovastatin] 1 TAB) PO SCH (09:00)
[2019-06-08] MEDS ORDERED: SPIRONOLACTONE 25 MG TABLET PO SCH (09:00)
[2019-06-08] MEDS ORDERED: SITAGLIPTIN PHOS 100 MG TAB PO SCH (09:00)
[2019-06-08] MEDS ORDERED: LISINOPRIL 10 MG TAB PO SCH (09:00)
--- NOTE | 2019-06-08 09:42 | RAD REPORT ---
EXAM DESCRIPTION: Shakila Ortiz (2 Views)06/08/2019 7:55 am CLINICAL HISTORY: Cough COMPARISON: June 07 FINDINGS: The lungs appear clear of acute infiltrate. The heart is mildly enlarged Small bilateral pleural effusions are present
--- NOTE | 2019-06-08 11:03 | PN ---
Date of Progress Note: 06/08/2019 Subjective: Mr. Severino was admitted yesterday with CHF, aortic stenosis, and atrial fibrillation. He has done well on Lasix, beta-blockers, Lovenox, and aspirin. His atrial fibrillation has not re curred. He remained in sinus rhythm. Objective: Chest: Clear. Cardiac: Showed an aortic stenosis murmur. Plan: We will plan to send him home today and set him up for a left and right heart catheterization as an outpatient next week. Continue present regimen. Avoid SAM inhibitors and ARBs for now. Aldac tone would be reasonable. ANAMIKA/ANTONIETA Voice ID: [id number] Report ID: [id number]
--- NOTE | 2019-06-08 15:49 | DS ---
Date of Discharge: 06/08/2019 Consultants: Trung Oh MD with Cardiology. Procedures: None. Admitting Diagnoses: 1.New onset atrial fibrillation. 2.Diabetes mellitus type 2 alw-uonmoug-ywydxaayy with hyperglycemia. 3.Hypertension essential. 4.Hyperlipidemia. 5.Chronic obstructive pulmonary disease. 6.Obesity. Discharge Diagnoses: 1.New onset atrial fibrillation with rapid ventricular response, now back in sinus rhythm. Continue with aspirin. Patient will be transitioned to Eliquis after heart catheterization or other oral ant icoagulation by Cardiology. 2.Acute congestive heart failure, systolic dysfunction, EF 30%. 3.Diabetes mellitus type 2 non-insulin dependent with hyperglycemia stable. 4.Mixed hyperlipidemia, on statin. 5.Chronic obstructive pulmonary disease, stable. Chronic bronchitis. 6.Essential hypertension, stable. 7.Pleural effusion, bilateral, likely related to congestive heart failure. Hospital Course: Patient is a 63-year-old male with past medical history of diabetes, hyperlipidemia , COPD, former smoker, comes in with shortness of breath, dizziness, found to have atrial fibrillatio n with RVR. Patient was given metoprolol. He was converted to sinus rhythm. He was found to have s ystolic congestive heart failure. He had bilateral pleural effusions. His EF was 30%. He also had moderate aortic stenosis. Patient will require heart catheterization in the future. Dr. Oh was consulted with Cardiology. He recommended outpatient cardiac catheterization on Tuesday, left and ri [facility]. Patient was started on diuretics and congestive heart failure guidelines. SAM inhibitor was avoided due to aortic stenosis. Patient was placed on aspirin for his atrial fibrillation now at he is back in sinus rhythm. He will be transitioned to oral anticoagulation after heart catheteri zation. He was extensively told to hold his metformin 2 days until after the heart catheterization a nd to not take his metformin when he goes home either until his heart catheterization procedure is co mplete and to resume in 48 hours after the procedure. Overall, patient did well. His symptoms impro jeff. He was able to be weaned off supplemental oxygen. He was saturating 97% on room air. His repe at chest x-ray showed small bilateral pleural effusions, improved with diuretics. Patient was then d ischarged home in a stable condition. Activity: As tolerated. Medications: As per medication reconciliation list. Again, do not start metformin until 2 days afte r heart catheterization. Continue to hold metformin. Followup: Follow up with primary care physician in 2-3 days. Follow up with hand buffing wheel former, Dr. Federico sadler on Tuesday. Return to ER for worsening condition. Diet: Diabetic. Activity: As tolerated. Physical Examination: General: Awake, alert, oriented x3, obese male. CV: S1, S2. No murmurs. Respiratory: Moving air well bilaterally. Abdomen: Soft, nontender, nondistended. Positive bowel sounds. Extremities: No clubbing, cyanosis, or edema. Neurologic: Nonfocal. Total time spent discharging the patient was 36 minutes. /ANTONIETA Voice ID: [id number] Report ID: [id number]
== END 2019-06-08 13:11 | disposition home or self-care (01) | DRG 291 ==
LOC: ER 05:11 → OBSVTOIN 06:35 → ERHOLD 06:35 → 4TH 13:15
PROVIDERS: ADMIT Family Medicine; ATTEND Family Medicine
DX: I11.0 Hypertensive heart disease with heart failure (principal); I50.21 Acute systolic (congestive) heart failure; I48.91 Unspecified atrial fibrillation; I35.0 Nonrheumatic aortic (valve) stenosis; E11.65 Type 2 diabetes mellitus with hyperglycemia; J44.9 Chronic obstructive pulmonary disease, unspecified; E78.2 Mixed hyperlipidemia; Z87.891 Personal history of nicotine dependence; Z88.0 Allergy status to penicillin
CPT/HCPCS: 36415; 70450; 71045; 71046; 71275; 80048; 80061; 80076; 81003; 82550; 82553; 82962; 83690; 83735; 83880; 84443; 84484; 85025; 85379; 85610; 87086; 87088; 93005; 93306; 93970; 96361; 96372; 96374; 96375; 99285; J1650; J1940; J2550; J7030; Q9967